=== PATIENT | male | born 1945 | race Caucasian/White ===

== ENCOUNTER → 2018-06-25 | Outpatient (CLI) | payer MEDICARE, OTHER ==
--- NOTE | 2018-06-25 16:17 | PCVCIMAG ---
APPROVED REPORT Study performed: 06/25/2018 13:05:04 Exam: Stress Echocardiogram Indication: Chest pain , Hypertension Patient Location: Echo lab Stress Nurse: Janneth Castellano RN Room #: 2 Status: routine Ht: 5 ft 6 in HR: 86 bpm BP: 140/82 mmHg Rhythm: NSR Medical History Medical History: HTN Cardiac Risk Factors: HTN Previous Cardiac Procedures: NONE Pretest Chest Pain Characteristics: No chest pain Exercise History: Physically active Procedure The patient underwent an Exercise Stress Test using the Jose M Protocol. Blood pressure, heart rate, and EKG were monitored. An Echocardiogram was performed by parking enforcement technician in four stages in quad fashion. At peak stress, four selected images were obtained and placed side by side with resting images for comparison. Stress Test Details Stress Test: Exercise stress testing was performed using a Jose M protocol. HR Resting HR: 77 bpmMax Heart Rate (APMHR): 148 bpm Max HR Achieved: 141 bpmTarget HR (85% APMHR): 125 bpm % of APMHR: 95 Recovery HR: 96 bpm HR response to stress: Normal HR response to stress BP Resting BP: 140/82 mmHg Max BP: 160/70 mmHg Recovery BP: 124/78 mmHg ECG Resting ECG: Sinus Rhythm, NSSTT changes Stress ECG: Sinus Rhythm ST Change: Non-ischemic Maximum ST Deviation: 0 mm Arrhythmia: occasional PACs Recovery ECG: Sinus Rhythm Recovery ST Change: Non-ischemic Recovery ST Deviation: 0 mm Recovery Arrhythmia: APC Clinical Reason for Termination: Maximal effort Stress Symptoms: none Exercise duration: 9 min 13 sec Highest Stage Achieved: Stage 4: 4.2 mph at 16% grade. Exercise capacity: 10.7 METs Overall Exercise Capacity for Age: Good Angina Score: None No complications. Stress ECG Conclusion The patient exercised according to the JOSE M protocol for 9:13 mins; achieving a work level of 10.7 METS. The resting heart rate of 77 bpm hola to a maximum heart rate of 141 bpm. This value represent 95% of the maximal, age-predicted heart rate. The resting blood pressure of 140/82 mmHg, hola to a maximum blood pressure of 160/70 mmHg. The exercise test was stopped due to fatigue. Muñoz Treadmill Score is 9.0 which is Low risk. Pre-Stress Echo The resting Echocardiogram showed normal left ventricular contractility with an estimated Ejection Fraction of about 55-60%. Normal wall motion in all segments on baseline images. Post-Stress Echo The stress Echocardiogram showed normal left ventricular contractility with an estimated Ejection Fraction of about 65-70%. Normal augmentation of wall motion in all segments on post stress images. Clinical No clinical or ECG evidence for ischemia. Conclusion Clinical Response: Non-ischemic Exercise Capacity: Average Stress ECG Response: Non-ischemic Stress Echo Images: Non-ischemic No clinical, EKG or echocardiographic evidence for ischemia. No echocardiographic evidence for exercise induced ischemia. Normal stress echocardiogram with maximal exercise stress. <Conclusion> No clinical, EKG or echocardiographic evidence for ischemia. No echocardiographic evidence for exercise induced ischemia. Normal stress echocardiogram with maximal exercise stress.
== END | disposition home or self-care (01) ==
LOC: PCVCIMAG 13:52
PROVIDERS: ATTEND Family Medicine
DX: R07.9 Chest pain, unspecified (principal); I10 Essential (primary) hypertension
CPT/HCPCS: 93325; 93351